=== PATIENT | female | born 1970 | race Two or more races ===

== ENCOUNTER 2023-11-22 10:27 | Emergency (ER) | payer OTHER ==
[~2023-11-22] VITALS: Ht 154.9 cm; Wt 48.1 kg
[2023-11-22] MEDS ORDERED: KEPPRA1000 MG PO (11:17)
[2023-11-22] MEDS ORDERED: DOXEPIN HCL10 MG PO (11:17)
[2023-11-22] MEDS ORDERED: FOLIC ACID1 MG PO (11:18)
[2023-11-22] MEDS ORDERED: CITALOPRAM HBR20 MG PO (11:19)
[2023-11-22] MEDS ORDERED: SIMVASTATIN5 MG PO (11:19)
[2023-11-22] MEDS ORDERED: KEPPRA500 MG PO (11:19)
[2023-11-22] MEDS ORDERED: ACETAMINOPHEN 500 MG GEL..CAP PO ONE ×2 (11:45→12:11)
[2023-11-22] MEDS ORDERED: DEXAMETHASONE SODIUM PHOSPHATE 4 MG/ML VIAL IM ONE (11:45)
[2023-11-22] MEDS ORDERED: DEXAMETHASONE SODIUM PHOSPHATE 4 MG/ML VIAL ONE (12:11)
[2023-11-22 13:08] LABS: HEMOGLOBIN 12.4 g/dL (12.0-15.00); MEAN CELL VOLUME 95.5 fL (80.00-100.00); MEAN CORPUSCULAR HEMOGLOBIN 32.8 pg (27.00-32.0); MEAN CORPUSCULAR HGB CONC 34.4 g/dl (32.0-36.0); PLATELET COUNT 266 K/uL (150-450); RED BLOOD COUNT 3.77 M/uL (4.00-6.00); RED CELL DISTRIBUTION WIDTH 13.3 % (11.5-14.5)
== END 2023-11-22 15:33 | disposition home or self-care (01) ==
LOC: ER 10:28
PROVIDERS: General Practice
DX: R53.81 Other malaise (principal); J06.9 Acute upper respiratory infection, unspecified; Z20.822 Contact with and (suspected) exposure to COVID-19; Z88.1 Allergy status to other antibiotic agents; Z88.2 Allergy status to sulfonamides
CPT/HCPCS: 36415; 96372; 99282; J1100